=== PATIENT | male | born 1975 | race Caucasian/White ===

== ENCOUNTER 2019-03-18 01:48 | Emergency (ER) | payer BC ==
[~2019-03-18] VITALS: Ht 172.7 cm; Wt 95.3 kg
[2019-03-18 01:59] VITALS: BP_SYST 135
[2019-03-18] MEDS ORDERED: LORazepam 2 MG/ML VIAL IVP ONE (02:15)
[2019-03-18] MEDS ORDERED: NACL 0.9% 1,000 ML IV ONE (02:15)
[2019-03-18 02:41] LABS: BARBITURATE, URINE NEGATIVE (NEG <=200); BENZODIAZEPINE, URINE NEGATIVE (NEG <=150); CANNABINOID, URINE NEGATIVE (NEG <=50); COCAINE, URINE NEGATIVE (NEG <=150); METHAMPHETAMINES SCREEN,URINE NEGATIVE (NEG <=500); OPIATE, URINE NEGATIVE (NEG <=100); PHENCYCLIDINE SCREEN,URINE NEGATIVE (NEG <=25); UR TRICYCLIC ANTIDEPRESSANTS NEGATIVE (NEG <=300); URINE AMPHETAMINE NEGATIVE (NEG <=500); URINE METHADONE NEGATIVE (NEG <=200); URINE OXYCODONE SCREEN NEGATIVE (NEG <=100); URINE PROPOXYPHENE SCREEN NEGATIVE (NEG <=300)
[2019-03-18 02:59] LABS: CALCIUM 8.5 mg/dL (8.4-11.0); CREATININE 0.6 mg/dL (0.55-1.30); POTASSIUM 3.6 mmol/L (3.5-5.1)
[2019-03-18 03:07] LABS: ALBUMIN 3.8 g/dL (3.4-4.8); TOTAL BILIRUBIN 0.8 mg/dL (0.0-1.0)
[2019-03-18 03:18] VITALS: BP_SYST 128
== END 2019-03-18 03:18 | disposition home or self-care (01) ==
LOC: SED 01:48
DX: S64.91XA Injury of unspecified nerve at wrist and hand level of right arm, initial encounter (principal); K21.9 Gastro-esophageal reflux disease without esophagitis; F10.99 Alcohol use, unspecified with unspecified alcohol-induced disorder; X58.XXXA Exposure to other specified factors, initial encounter; Y93.89 Activity, other specified; Y92.89 Other specified places as the place of occurrence of the external cause; Y99.0 Civilian activity done for income or pay
CPT/HCPCS: 29125; 36415; 80053; 80307; 96374; 99283; G0482; J2060; J7030

== ENCOUNTER 2019-03-19 01:18 | Emergency (ER) | payer BC ==
[~2019-03-19] VITALS: Ht 172.7 cm; Wt 95.3 kg
--- NOTE | 2019-03-19 01:18 | NUR ---
Placed in room 1 . Placed on satellite project site monitor, blood pressure machine and pulse oximeter. To gown for exam. Side rails up. Report given to JANIE RODGERS.
[2019-03-19 01:20] VITALS: BP_SYST 132
--- NOTE | 2019-03-19 01:30 | NUR ---
Pt brought in by family member. Pt awake, alert, oriented x4. Pt ambulatory with steady gait. Pt states chief complaint of chest pain starting today in the late afternoon and progressively getting worse. Pt states he was here yesterday with "shakes and some anxiety" pr patient. Pt states that he has no shortness of breath, no nausea, vomiting, diarrhea. Pt states he drinks 8-9 beers daily as he works at a [employer]. Pt denies any other medical complaint at this time. Pt resting in ED bed comfortably, no acute distress at this time. Pt VSS, on cardiac monitoring
--- NOTE | 2019-03-19 01:37 | NUR ---
ER at bedside examining patient.
--- NOTE | 2019-03-19 01:43 | NUR ---
# 18 gauge angiocath placed to LEFT AC. Use of asceptic technique. Opsite placed over site. Blood return noted. Blood for lab drawn from site. Flushed with 10 cc of normal saline. No evidence of infiltration noted. Patient tolerated well.
--- NOTE | 2019-03-19 01:43 | NUR ---
CXR PERFORMED AT THE BEDSIDE.PT TOLERATED WELL.
[2019-03-19] MEDS ORDERED: LORazepam 1 MG TABLET PO ONE (01:45)
[2019-03-19 02:01] LABS: BASOPHILS # (AUTO) 0.2 K/uL (0.0-0.2); BASOPHILS % (AUTO) 2.4 % (0.0-2.0); EOSINOPHILS # (AUTO) 0.1 K/uL (0.0-0.4); EOSINOPHILS % (AUTO) 1.3 % (0.0-4.0); HEMATOCRIT 44.8 % (36-54); HEMOGLOBIN 14.9 g/dL (14.0-18.0); LYMPHOCYTES # (AUTO) 1.9 K/uL (1.0-5.5); LYMPHOCYTES % (AUTO) 30.2 % (20.5-51.5); MEAN CORPUSCULAR HEMOGLOBIN 31 pg (27-31); MEAN CORPUSCULAR HGB CONC 33 % (32-36); MEAN CORPUSCULAR VOLUME 92 fL (79.0-98.0); MONOCYTES # (AUTO) 0.6 K/uL (0.0-1.0); MONOCYTES % (AUTO) 9.3 % (1.7-9.3); NEUTROPHILS # (AUTO) 3.6 K/uL (1.8-7.7); NEUTROPHILS % (AUTO) 56.8 % (40.0-70.0); PLATELET COUNT (AUTO) 79 K/uL (130-430); RED BLOOD CELL COUNT(AUTO) 4.89 MIL/uL (4.2-6.2); RED CELL DISTRIBUTION WIDTH 13.9 % (9.0-15.0); WHITE BLOOD COUNT (AUTO) 6.3 K/uL (4.8-10.8)
[2019-03-19 02:18] LABS: CALCIUM 8.6 mg/dL (8.4-11.0); CREATININE 0.63 mg/dL (0.55-1.30); POTASSIUM 3.7 mmol/L (3.5-5.1)
[2019-03-19 02:24] LABS: ALBUMIN 3.8 g/dL (3.4-4.8); TOTAL BILIRUBIN 0.8 mg/dL (0.0-1.0)
[2019-03-19 03:30] VITALS: BP_SYST 126
--- NOTE | 2019-03-19 03:30 | NUR ---
Patient given written and verbal discharge instructions and verbalizes understanding. ER MD discussed with patient the results and treatment provided. Patient in stable condition. ID arm band removed. IV catheter removed intact and dressing applied, no active bleeding. no Rx of given. Patient educated on pain management and to follow up with PMD. Pain Scale 0/10. Opportunity for questions provided and answered. Medication side effect fact sheet provided.
== END 2019-03-19 03:30 | disposition home or self-care (01) ==
LOC: SED 01:18
DX: R07.89 Other chest pain (principal); R20.0 Anesthesia of skin; R20.2 Paresthesia of skin; F41.9 Anxiety disorder, unspecified; K21.9 Gastro-esophageal reflux disease without esophagitis
CPT/HCPCS: 36415; 71045; 80053; 82550-TC; 83880; 84484; 85025; 93005; 99285

== ENCOUNTER 2022-06-02 18:48 | Emergency (ER) | payer BC, MEDICAID ==
[~2022-06-02] VITALS: Ht 172.7 cm; Wt 72.6 kg
[2022-06-02 18:55] VITALS: BP_SYST 139
== END 2022-06-02 19:10 | disposition left against medical advice (07) ==
LOC: SED 18:48
DX: M79.89 Other specified soft tissue disorders (principal); Z53.21 Procedure and treatment not carried out due to patient leaving prior to being seen by health care provider
CPT/HCPCS: 99281

== ENCOUNTER 2022-10-07 09:43 | Emergency (ER) | payer SELFPAY ==
[~2022-10-07] VITALS: Ht 172.7 cm; Wt 77.1 kg
[2022-10-07 10:26] VITALS: BP_SYST 118; PULSE 79; RESP 18; TEMP 97.8; O2SAT 96
[2022-10-07] MEDS ORDERED: NACL 0.9% 2,000 ML IV ONE (10:30)
[2022-10-07] MEDS ORDERED: LORazepam 2 MG/ML VIAL IVP ONE ×2 (10:30→12:15)
[2022-10-07 10:46] LABS: EOSINOPHILS # (AUTO) 0.2 K/uL (0.0-0.4); EOSINOPHILS % (AUTO) 4.2 % (0.0-4.0); HEMATOCRIT 36.9 % (36-54); HEMOGLOBIN 12.2 g/dL (14.0-18.0); LYMPHOCYTES # (AUTO) 1.1 K/uL (1.0-5.5); MEAN CORPUSCULAR HEMOGLOBIN 32 pg (27-31); MEAN CORPUSCULAR HGB CONC 33 % (32-36); MEAN CORPUSCULAR VOLUME 97 fL (79.0-98.0); MONOCYTES # (AUTO) 0.5 K/uL (0.0-1.0); MONOCYTES % (AUTO) 13.9 % (1.7-9.3); PLATELET COUNT (AUTO) 64 K/uL (130-430); RED BLOOD CELL COUNT(AUTO) 3.82 MIL/uL (4.2-6.2); RED CELL DISTRIBUTION WIDTH 13.1 % (9.0-15.0); WHITE BLOOD COUNT (AUTO) 3.7 K/uL (4.8-10.8)
[2022-10-07 10:53] LABS: BASOPHILS % (AUTO) 0.2 % (0.0-2.0); NEUTROPHILS % (AUTO) 52.7 % (40.0-70.0)
[2022-10-07 11:00] LABS: ANION GAP 11 (5-15); CALCIUM 8.6 mg/dL (8.4-11.0); CARBON DIOXIDE 29 mmol/L (23-29); CHLORIDE 99 mmol/L (98-107); CREATININE 0.68 mg/dL (0.55-1.30); GFR AFRICAN AMERICAN 163 mL/min (>90); GFR NON AFRICAN-AMERICAN 135 mL/min (>90); GLUCOSE 119 mg/dL (74-106); POTASSIUM 3.3 mmol/L (3.5-5.1); SODIUM SERUM 139 mmol/L (136-145); UREA NITROGEN, BLOOD 5 mg/dL (8-21)
[2022-10-07 11:05] LABS: INR 1.1 (0.80-1.20); PROTHROMBIN TIME 11.6 SECS (9.5-12.5)
[2022-10-07 11:14] LABS: ALANINE AMINOTRANSFERASE 65 U/L (12-78); ALCOHOL, BLOOD 69 mg/dL (<10); AMYLASE 44 U/L (0-100); ASPARTATE AMINOTRANSFERASE 148 U/L (10-37); LIPASE 285 U/L (73-393); TOTAL BILIRUBIN 1.5 mg/dL (0.0-1.0); TOTAL PROTEIN, SERUM 7.5 g/dL (6.4-8.3)
[2022-10-07 11:24] LABS: ACETONE, SERUM NEGATIVE (NEGATIVE)
[2022-10-07] MEDS ORDERED: LORA-259 PO (12:08)
[2022-10-07 12:32] VITALS: BP_SYST 136; PULSE 100; RESP 17; TEMP 97.1; O2SAT 99
== END 2022-10-07 12:34 | disposition home or self-care (01) ==
LOC: SED 09:43
DX: F10.10 Alcohol abuse, uncomplicated (principal); R51.9 Headache, unspecified; R53.1 Weakness; R11.0 Nausea; Z79.899 Other long term (current) drug therapy; Y90.6 Blood alcohol level of 120-199 mg/100 ml
CPT/HCPCS: 99285; 96374; 70450; 96361; 80053; 82009; 82140; 82150; 83690; 85025; 85610; 85730; 36415; 76376; 96376; 83605; G0482; J2060; J7030

== ENCOUNTER 2023-03-02 03:48 | Emergency (ER) | payer MEDICAID ==
[~2023-03-02] VITALS: Ht 172.7 cm; Wt 70.3 kg
[~2023-03-02 03:48] MED LIST: LORA-259 PO
[2023-03-02 03:50] VITALS: BP_SYST 151; PULSE 26; RESP 20; TEMP 97.9; O2SAT 97
[2023-03-02] MEDS ORDERED: LORazepam 2 MG/ML VIAL IVP ONE (04:00)
[2023-03-02] MEDS ORDERED: NACL 0.9% 1,000 ML IV ONE (04:00)
[2023-03-02 05:21] LABS: BASOPHILS # (AUTO) 0.1 K/uL (0.0-0.2); BASOPHILS % (AUTO) 1.5 % (0.0-2.0); EOSINOPHILS # (AUTO) 0.1 K/uL (0.0-0.4); EOSINOPHILS % (AUTO) 1.4 % (0.0-4.0); HEMATOCRIT 40.6 % (36-54); HEMOGLOBIN 13.7 g/dL (14.0-18.0); LYMPHOCYTES # (AUTO) 1.6 K/uL (1.0-5.5); LYMPHOCYTES % (AUTO) 36.4 % (20.5-51.5); MEAN CORPUSCULAR HEMOGLOBIN 32 pg (27-31); MEAN CORPUSCULAR HGB CONC 34 % (32-36); MEAN CORPUSCULAR VOLUME 95 fL (79.0-98.0); MONOCYTES # (AUTO) 0.4 K/uL (0.0-1.0); MONOCYTES % (AUTO) 8.2 % (1.7-9.3); NEUTROPHILS # (AUTO) 2.3 K/uL (1.8-7.7); NEUTROPHILS % (AUTO) 52.5 % (40.0-70.0); PLATELET COUNT (AUTO) 94 K/uL (130-430); RED BLOOD CELL COUNT(AUTO) 4.28 MIL/uL (4.2-6.2); RED CELL DISTRIBUTION WIDTH 14.7 % (9.0-15.0); WHITE BLOOD COUNT (AUTO) 4.4 K/uL (4.8-10.8)
[2023-03-02 05:39] LABS: CALCIUM 8.7 mg/dL (8.4-11.0); CREATININE 0.64 mg/dL (0.55-1.30); POTASSIUM 3.7 mmol/L (3.5-5.1)
[2023-03-02 05:50] LABS: ALBUMIN 4.4 g/dL (3.4-4.8); TOTAL BILIRUBIN 0.9 mg/dL (0.0-1.0); TOTAL PROTEIN, SERUM 8.6 g/dL (6.4-8.3)
[2023-03-02 05:57] VITALS: BP_SYST 154; PULSE 83; RESP 16; TEMP 98.8; O2SAT 96
== END 2023-03-02 05:57 | disposition home or self-care (01) ==
LOC: SED 03:48
DX: R53.1 Weakness (principal); F10.129 Alcohol abuse with intoxication, unspecified; Z79.899 Other long term (current) drug therapy; Y90.6 Blood alcohol level of 120-199 mg/100 ml
CPT/HCPCS: 99283; 96374; 96361; 80053; 85025; 36415; G0482; J2060; J7030